=== PATIENT | female | born 1975 | race Caucasian/White ===

== ENCOUNTER → 2017-01-01 | Outpatient (CLI) | payer BC ==
--- NOTE | 2017-01-01 16:45 | KCIC ---
MRI right foot without contrast dated 01/01/2017. No comparison available. CLINICAL INDICATION: Right foot pain. Pain along fifth metatarsal. Tender to weightbearing. TECHNIQUE: T1 and T2-weighted imaging performed in 3 planes to include the midfoot region. No contrast administered. 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 No bone marrow edema or periostitis. Marrow signal is otherwise homogeneous. Bony alignment is anatomic. Lisfranc ligament complex is intact. There is increased signal and thickening of the peroneus longus and peroneus brevis at the level of the superior and inferior peroneal retinaculum. Small amount of surrounding fluid. No discrete tear. Flexor and extensor tendons are intact. The Achilles tendon was not included on the study. Visualized portions of the plantar fascial and plantar aponeurosis are intact. There is mild edema within the plantar foot musculature. Medial and lateral ankle ligaments are not well evaluated but appear grossly intact. IMPRESSION: 1. 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 There is no bone marrow edema or periostitis to suggest an acute process. 2. Mild tenosynovitis of the peroneus longus and peroneus brevis. No focal tear. Electronically signed by: Steve Nichols MD (01/01/2017 4:41 PM) [id number]
== END | disposition home or self-care (01) ==
LOC: KCIC MRI 15:50
PROVIDERS: ATTEND Physician Assistant Medical
DX: M65.871 Other synovitis and tenosynovitis, right ankle and foot (principal)
CPT/HCPCS: 73718